=== PATIENT | male | born 1935 | race African-American/Black ===

== ENCOUNTER 2020-10-16 18:56 | Emergency (ER) | payer MEDICARE ==
[~2020-10-16] VITALS: Ht 182.9 cm; Wt 103.4 kg
[2020-10-16 19:00] VITALS: BP 131/74
[2020-10-16] MEDS ORDERED: IV NS 0.9% 500 ML BAG IV ONE (19:30)
[2020-10-16] MEDS ORDERED: ACETAMINOPHEN 650 MG/20.3 ML UDC PO ONE (19:30)
--- NOTE | 2020-10-16 19:36 | NUR ---
CORAZON (DAUGHTER) CONTACT INFORMATION: [phone] VIKTORIYA (SON) CONTACT INFORMATION: [phone]
[2020-10-16] MEDS ORDERED: ACETAMINOPHEN 325 MG TABLET ONE (19:40)
--- NOTE | 2020-10-16 19:43 | NUR ---
XRAY AT BEDSIDE.
[2020-10-16 19:48] LABS: BASOPHILS # (AUTO) 0.1 /CMM (0.0-0.2); BASOPHILS % (AUTO) 0.6 % (0.0-2.0); EOSINOPHILS % (AUTO) 0.4 % (0.0-6.0); HEMATOCRIT 39 % (39-51); HEMOGLOBIN 12.6 g/dL (13.5-17.5); LYMPHOCYTES % (AUTO) 10.7 % (20.0-44.0); MEAN CORPUSCULAR HGB CONC 33 g/dl (31.0-36.0); MEAN CORPUSCULAR VOLUME 89 fL (80-96); MONOCYTES # (AUTO) 0.6 /CMM (0.1-1.30); MONOCYTES % (AUTO) 6.1 % (2.0-12.0); NEUTROPHILS % (AUTO) 82.2 % (43.0-81.0); PLATELET COUNT (AUTO) 259 /CMM (150-450); RED BLOOD CELL COUNT(AUTO) 4.32 MIL/uL (4.5-6.0); WHITE BLOOD COUNT (AUTO) 9.8 K/uL (4.3-11.0)
[2020-10-16 20:11] LABS: ALANINE AMINOTRANSFERASE 30 U/L (12-78); ALBUMIN 3.1 g/dL (3.4-5.0); ALKALINE PHOSPHATASE 112 U/L (46-116); ASPARTATE AMINOTRANSFERASE 27 U/L (15-37); BILIRUBIN,DIRECT 0.1 mg/dL (0.0-0.2); BILIRUBIN,TOTAL 0.4 mg/dL (0.2-1.0); CARBON DIOXIDE 23 mmol/L (21-32); CHLORIDE 108 mmol/L (98-107); CREATININE 1.3 mg/dL (0.6-1.3); GLUCOSE 130 mg/dL (74-106); LIPASE 347 U/L (73-393); POTASSIUM 4.1 mmol/L (3.5-5.1); SODIUM SERUM 143 mmol/L (136-145); TOTAL PROTEIN, SERUM 6.8 g/dL (6.4-8.2); UREA NITROGEN, BLOOD 25 mg/dL (7-18)
--- NOTE | 2020-10-16 20:17 | NUR ---
REPORT GIVEN TO TRANSPORT TEAM FOR SUMMER. AND TRANSFERRING RESPONSIBILIITIES
--- NOTE | 2020-10-16 20:31 | NUR ---
[facility] ETA 45-60 MINUTES
--- NOTE | 2020-10-16 20:36 | NUR ---
CALLED FACILITY, REPORT GIVEN TO TED GOETZ AT [facility]
--- NOTE | 2020-10-16 20:58 | NUR ---
Patient discharged to home in stable condition. Written and verbal after care instructions given. Patient verbalizes understanding of instruction.
--- NOTE | 2020-10-16 20:58 | NUR ---
IV removed. Catheter intact and site benign. Pressure and 4x4 applied to site. No bleeding noted.
[2020-10-17] MEDS ORDERED: ATOR20TA PO (14:06)
[2020-10-17] MEDS ORDERED: LOSA25TA27 PO (14:06)
[2020-10-17] MEDS ORDERED: FLUO20CA36 PO (14:06)
[2020-10-17] MEDS ORDERED: LORA-259 PO (14:06)
[2020-10-17] MEDS ORDERED: FINA5TAB11 PO (14:06)
[2020-10-17] MEDS ORDERED: SUCR1TAB PO (14:06)
[2020-10-17] MEDS ORDERED: SERT25TA PO (14:06)
== END 2020-10-16 21:59 ==
LOC: ER 19:00
DX: S76.012A Strain of muscle, fascia and tendon of left hip, initial encounter (principal); S76.011A Strain of muscle, fascia and tendon of right hip, initial encounter; S30.1XXA Contusion of abdominal wall, initial encounter; E86.0 Dehydration; F03.90 Unspecified dementia, unspecified severity, without behavioral disturbance, psychotic disturbance, mood disturbance, and anxiety; F32.9 Major depressive disorder, single episode, unspecified; I10 Essential (primary) hypertension; W18.39XA Other fall on same level, initial encounter; Y93.89 Activity, other specified; Y92.89 Other specified places as the place of occurrence of the external cause; Y99.8 Other external cause status
CPT/HCPCS: 36415; 71045-TC; 72170-TC; 80048-TC; 80076-TC; 83690-TC; 84484-TC; 85025-TC

== ENCOUNTER 2020-10-17 13:04 | Inpatient (IN) | payer MEDICARE, BC ==
[~2020-10-17] VITALS: Ht 188 cm; Wt 101.7 kg
--- NOTE | 2020-10-17 13:10 | NUR ---
[id number] M SHELTER C/O L RIB AREA PAIN, PT FOUND IN THE FLOOR BY THE BEDSIDE PER EMS, STAFF STATES PT WAS VERBALIZING HE WANTS TO . PT DENIES STAFF SCIENTIST. PATIENT DENIES SI/HI AT THIS TIME. IN ROOM AIR AND DENIES SOB. RESPIRATION REGULAR AND UNLABORED. ATTACHED ON A MONITOR. WARM BLANKET PROVIDED FOR COMFORT. WILL CONTINUE TO MONITOR THE PATIENT.
--- NOTE | 2020-10-17 13:34 | NUR ---
BLOOD SPECIMEN COLLECTED AND SENT TO THE LAB
[2020-10-17 13:40] LABS: BASOPHILS % (AUTO) 0.3 % (0.0-2.0); EOSINOPHILS % (AUTO) 0.4 % (0.0-6.0); HEMATOCRIT 38 % (39-51); HEMOGLOBIN 12.4 g/dL (13.5-17.5); LYMPHOCYTES # (AUTO) 0.8 /CMM (0.8-4.8); LYMPHOCYTES % (AUTO) 10.1 % (20.0-44.0); MEAN CORPUSCULAR HGB CONC 33 g/dl (31.0-36.0); MEAN CORPUSCULAR VOLUME 89 fL (80-96); MONOCYTES # (AUTO) 0.4 /CMM (0.1-1.30); MONOCYTES % (AUTO) 5.4 % (2.0-12.0); NEUTROPHILS # (AUTO) 6.9 /CMM (1.8-8.9); NEUTROPHILS % (AUTO) 83.8 % (43.0-81.0); PLATELET COUNT (AUTO) 257 /CMM (150-450); RED BLOOD CELL COUNT(AUTO) 4.29 MIL/uL (4.5-6.0); WHITE BLOOD COUNT (AUTO) 8.3 K/uL (4.3-11.0)
[2020-10-17 13:54] LABS: ALANINE AMINOTRANSFERASE 29 U/L (12-78); ALBUMIN 3.2 g/dL (3.4-5.0); ALCOHOL, BLOOD < 3 mg/dL (0-0); ALKALINE PHOSPHATASE 112 U/L (46-116); ASPARTATE AMINOTRANSFERASE 26 U/L (15-37); BILIRUBIN,DIRECT 0.1 mg/dL (0.0-0.2); BILIRUBIN,TOTAL 0.5 mg/dL (0.2-1.0); CALCIUM, SERUM 8.9 mg/dL (8.5-10.1); CARBON DIOXIDE 26 mmol/L (21-32); CHLORIDE 106 mmol/L (98-107); CREATININE 1.1 mg/dL (0.6-1.3); GLUCOSE 131 mg/dL (74-106); SODIUM SERUM 144 mmol/L (136-145); TOTAL PROTEIN, SERUM 6.8 g/dL (6.4-8.2); UREA NITROGEN, BLOOD 19 mg/dL (7-18)
--- NOTE | 2020-10-17 13:56 | NUR ---
urine collected and sent to the lab
[2020-10-17 14:05] LABS: ACETAMINOPHEN < 2 ug/ml (10-30)
[2020-10-17] MEDS ORDERED: ATOR20TA PO (14:06)
[2020-10-17] MEDS ORDERED: LORA-259 PO (14:06)
[2020-10-17] MEDS ORDERED: FLUO20CA36 PO (14:06)
[2020-10-17] MEDS ORDERED: SERT25TA PO (14:06)
[2020-10-17] MEDS ORDERED: SUCR1TAB PO (14:06)
[2020-10-17] MEDS ORDERED: LOSA25TA27 PO (14:06)
[2020-10-17] MEDS ORDERED: FINA5TAB11 PO (14:06)
[2020-10-17 14:17] LABS: BILIRUBIN,URINE Negative (NEGATIVE); COLOR,URINE YELLOW (YELLOW); LEUKOCYTE ESTERASE ,URINE Negative (NEGATIVE); NITRITE, URINE Negative (NEGATIVE); PROTEIN,URINE Trace mg/dl (NEGATIVE); UGLUCOSE Negative (NEGATIVE); UROBILINOGEN,URINE 0.2 EU/dL (0.2)
[2020-10-17 14:22] LABS: BACTERIA,URINE Rare /HPF (None Seen); RBC,URINE NONE SEEN /HPF (0-2); SQUAMOUS EPITHELIAL CELL,UR Few /HPF (None Seen); WBC,URINE NONE SEEN /HPF (0-3)
--- NOTE | 2020-10-17 14:36 | NUR ---
COVID SWAB DONE AND SENT TO THE LAB
--- NOTE | 2020-10-17 15:08 | NUR ---
LAB CALLED PT COVID RESULT NEGATIVE (-).
--- NOTE | 2020-10-17 15:19 | NUR ---
[facility] CALLED [phone]
--- NOTE | 2020-10-17 16:08 | NUR ---
THE SITTER NOTED THAT THE PATIENT IS GETTING OUT OF BED AND ATTEMPTED TO PREVENT PATIENT FALL, HOWEVER, THE SITTER COULD NOT HOLD THE PATIENT AND THE PATIENT ROLLED OUT OF BED TO THE FLOOR. SITTER CALLED ER STAFF FOR HELP. THE PATIENT FOUND ON THE FLOOR WITH FOREHEAD LACERATION AND DROPS OF BLOOD IN HIS FOREHEAD AND THE FLOOR. PATIENT IS ASSESSED BY DR ARCINIEGA. TRANSFERED BACK TO BED BY [facility] NURSES.
--- NOTE | 2020-10-17 16:10 | NUR ---
FALL INCIDENT DONE
--- NOTE | 2020-10-17 16:11 | NUR ---
SON RAMESH SADLER IS MADE AWARE OF THE FALL INCIDENT.
--- NOTE | 2020-10-17 17:43 | NUR ---
[facility] CALLED OUTGOING INSPECTOR PAGED.
--- NOTE | 2020-10-17 17:51 | NUR ---
PATIENT IN BED. NO CHANGE IN LOC NOTED. RESPIRATION REGULAR AND UNLABORED. WILL CONTINUE TO MONITOR THE PATIENT.
[2020-10-17] MEDS ORDERED: MAGNESIUM HYDROXIDE 30 ML UDC PO PRN (18:30)
[2020-10-17] MEDS ORDERED: Z GUARD REMEDY 2 OZ OINT TP PRN (18:30)
[2020-10-17] MEDS ORDERED: MAG HYDROX/AL HYDROX/SIMETH 30 ML UDC PO PRN (18:30)
[2020-10-17] MEDS ORDERED: ACETAMINOPHEN 325 MG TABLET PO PRN (18:30)
[2020-10-17] MEDS ORDERED: ONDANSETRON HCL/PF 4 MG/2 ML VIAL IVP PRN (18:30)
[2020-10-17] MEDS ORDERED: HYDROCODONE/APAP 5/325MG TABLET PO PRN (18:30)
--- NOTE | 2020-10-17 19:20 | NUR ---
REPORT GIVEN TO BISHNU KURTZ FOR SUMMER
--- NOTE | 2020-10-17 22:01 | NUR ---
PT AWAKE IN BED, REMAINS ON MONITOR AND PULSE OX.
--- NOTE | 2020-10-18 00:16 | NUR ---
PT REMAINS IN BED, VSS.
[2020-10-18] MEDS ORDERED: OLANZAPINE 10 MG VIAL IM ONE ×2 (00:28→00:30)
--- NOTE | 2020-10-18 02:37 | NUR ---
PT PROVIDED WITH PILLOW, SITTER AT BEDSIDE.
[2020-10-18 05:42] LABS: CALCIUM, SERUM 8.4 mg/dL (8.5-10.1); PHOSPHORUS 3.7 mg/dL (2.5-4.9); POTASSIUM 3.8 mmol/L (3.5-5.1)
--- NOTE | 2020-10-18 06:45 | NUR ---
PT REPOSITIONED, PROVIDED WITH MORE BLANKETS.
[2020-10-18 06:54] LABS: BASOPHILS % (AUTO) 0.3 % (0.0-2.0); EOSINOPHILS % (AUTO) 0.5 % (0.0-6.0); HEMATOCRIT 37 % (39-51); HEMOGLOBIN 11.9 g/dL (13.5-17.5); LYMPHOCYTES # (AUTO) 1.2 /CMM (0.8-4.8); LYMPHOCYTES % (AUTO) 15.2 % (20.0-44.0); MEAN CORPUSCULAR HGB CONC 33 g/dl (31.0-36.0); MEAN CORPUSCULAR VOLUME 90 fL (80-96); MONOCYTES # (AUTO) 0.6 /CMM (0.1-1.30); MONOCYTES % (AUTO) 7.3 % (2.0-12.0); NEUTROPHILS # (AUTO) 6.2 /CMM (1.8-8.9); NEUTROPHILS % (AUTO) 76.7 % (43.0-81.0); PLATELET COUNT (AUTO) 212 /CMM (150-450); RED BLOOD CELL COUNT(AUTO) 4.06 MIL/uL (4.5-6.0); WHITE BLOOD COUNT (AUTO) 8.1 K/uL (4.3-11.0)
[2020-10-18] MEDS ORDERED: POTA20TA83 PO (08:20)
[2020-10-18] MEDS ORDERED: ACET-2605 PO (08:20)
[2020-10-18] MEDS ORDERED: LOSARTAN POTASSIUM 25 MG TABLET ONE (08:41)
[2020-10-18] MEDS ORDERED: SUCRALFATE 1 G TABLET ONE (08:42)
--- NOTE | 2020-10-18 08:45 | NUR ---
Patient eyesclose arousable alert to name sitter @ bedside repositioned patient to rt side non follows redness to buttocks keepatient clean and dry .
[2020-10-18] MEDS ORDERED: FLUOXETINE HCL 20 MG CAPSULE PO SCH (09:00)
[2020-10-18] MEDS: SERTRALINE HCL 25 MG TABLET PO SCH (09:00)
[2020-10-18] MEDS: LOSARTAN POTASSIUM 25 MG TABLET PO SCH (09:02)
[2020-10-18] MEDS: SUCRALFATE 1 G TABLET PO SCH ×2 (09:02→17:00)
[2020-10-18] MEDS: FINASTERIDE (5 MG) 5 MG TABLET PO SCH (09:02)
--- NOTE | 2020-10-18 09:10 | NUR ---
Called pharmacy regarding meds zoloft
--- NOTE | 2020-10-18 09:52 | NUR ---
Patient awake alert to name only .Patient morning meds given able to swallow pills non difficulties .
--- NOTE | 2020-10-18 10:03 | NUR ---
Jessy daughter [phone] .
[2020-10-18] MEDS ORDERED: MISCELLANEOUS MED 1 EA EA PO PRN (11:30)
[2020-10-18] MEDS ORDERED: LORAZEPAM 1 MG TABLET PO PRN (11:30)
--- NOTE | 2020-10-18 13:01 | NUR ---
Patient is fall precaution sitter @ bedside ,call light with in reach side rails up x 2 for safety .
--- NOTE | 2020-10-18 14:23 | NUR ---
Patient awake feeding asssit he ate 90 % of his lunch tray .
--- NOTE | 2020-10-18 16:29 | NUR ---
Patient awake non distress @ this time follows command ,fall precaution vitals taken and filed .
[2020-10-18 16:30] VITALS: BP 110/86
--- NOTE | 2020-10-18 16:36 | NUR ---
Called Emily ( daughter ) for update .
--- NOTE | 2020-10-18 17:12 | NUR ---
GOT BED 110 AFTER 173
--- NOTE | 2020-10-18 18:17 | NUR ---
Report given to Danni GOETZ ,aware if theres more question to Ed .Per Yovani Lemos he was trying to call report x 3 .
[2020-10-18 19:08] VITALS: BP 110/86
[2020-10-18 20:00] VITALS: BP 128/78
--- NOTE | 2020-10-18 20:01 | NUR ---
RN NOTE PATIENT AWAKE, ALERT AND ORIENTED TO NAME ONLY. PERIODS OF CONFUSION. ON O2 2LPM VIA NASAL CANNULA. NO SOB OR ANY RESPIRATORY DISTRESS. DENIES ANY PAIN. IV MIGUELINA #20 PATENT AND INTACT, FLUSHED WITH NS ASEPTICALLY. PATIENT IS FALL RISK, BED ALARM ON. SITTER @ BEDSIDE. BED LOCKED AND IN LOWEST POSITION. CALL LIGHT WITHIN REACH. WILL CONTINUE TO MONITOR.
[2020-10-18] MEDS: ATORVASTATIN 10 MG TABLET PO SCH (22:13)
[2020-10-19 04:00] VITALS: BP 128/82
--- NOTE | 2020-10-19 06:56 | NUR ---
RN NOTE PATIENT AWAKE, ALERT AND ORIENTED TO NAME ONLY. PERIODS OF CONFUSION. ON O2 2LPM VIA NASAL CANNULA, O2 SAT 94%. NO SOB NOTED. IV MIGUELINA #20 PATENT AND INTACT. PATIENT IS FALL RISK, BED ALARM ON. SITTER @ BEDSIDE. BED LOCKED AND IN LOWEST POSITION. CALL LIGHT WITHIN REACH. WILL ENDORSE TO AM SHIFT
--- NOTE | 2020-10-19 07:30 | NUR ---
RN OPENING NOTES Patient is alert and verbally responsive to verbal and physical stimuli. Patient is breathing even and unlabored. On 02 2liters via n/c with sat of 98%. No grimacing or moaning noted. 1:1 sitter observed at bedside. bed is in lowest and locked position. Call light with in reach.
[2020-10-19 08:00] VITALS: BP 139/87
[2020-10-19] MEDS: SUCRALFATE 1 G TABLET PO SCH ×2 (08:23→16:19)
[2020-10-19] MEDS: SERTRALINE HCL 25 MG TABLET PO SCH (08:23)
[2020-10-19] MEDS: POTASSIUM CHLORIDE 20 MEQ TAB.PRT.SR PO SCH (08:23)
[2020-10-19] MEDS: FINASTERIDE (5 MG) 5 MG TABLET PO SCH (08:23)
[2020-10-19] MEDS: LOSARTAN POTASSIUM 25 MG TABLET PO SCH (08:29)
--- NOTE | 2020-10-19 12:30 | NUR ---
UNIT TRANSFER NOTES Patient transferred to [facility] at apprx 12:15pm and report given to Ed GOETZ. Patient on 2 liters 02 via n/c with 02 sat of 96%. Patient continues on 1:1 sitter.
[2020-10-19 13:20] VITALS: BP 132/85
--- NOTE | 2020-10-19 13:40 | NUR ---
MS RN NOTES PT TRANSFERRED FROM [facility] TO 321-1 AT 1315 ACCOMPANIED BY RN KATELYNN AND PTS RITIKA MILLER. PATIENT IS AWAKE, ALERT AND ORIENTED X2 TO NAME AND PLACE. PT IS CONFUSED AND FORGETFUL. ORIENTED TO ROOM AND STAFF. VS TAKEN AND RECORDED. ON O2 2LPM VIA N/C,TOLERATING WELL WITH NO SOB NOTED. PHYSICAL ASSESSMENT DONE. PT WITH MULTIPLE BRUISES: L/R LOWER EYES WITH BRUISES, RIGHT SIDE ABD BRUISE, BLE BRUISES, SLIGHT REDNESS ON B/L HEELS, ELEVATED WITH PILLOWS, LEFT KNEE BRUISE, LEFT LOWER BACK AND RIGHT ARM BRUISES,B/L HIPS BRUISES AND RIGHT FOREHEAD WITH 13 SUTURES INTACT. IV ACCESS ON MIGUELINA #20 PATENT AND INTACT. PATIENT IS FALL RISK: BED ALARM ON. SITTER @ BEDSIDE. BED LOCKED AND IN LOWEST POSITION. CALL LIGHT WITHIN REACH. WILL CONTINUE TO MONITOR.
[2020-10-19 16:00] VITALS: BP 144/84
--- NOTE | 2020-10-19 18:59 | NUR ---
MS RN CLOSING NOTES PT TRANSFERRED FROM [facility] TO 321-1, WITH ONE ON ONE SITTER, PATIENT SLEEP IN BED BUT AROUSABLE TO STIMULI , ALERT AND ORIENTED X1, WITH EPISODE OF CONFUSION L. ORIENTED TO ROOM AND STAFF. VS TAKEN AND RECORDED. ON O2 2LPM VIA N/C,TOLERATING WELL WITH NO SOB NOTED. PHYSICAL ASSESSMENT DONE. IV ACCESS ON MIGUELINA #20 PATENT AND INTACT. PATIENT IS FALL RISK: BEDIN LOW POSITION, CALL LIGHTS WITHIN REACH, ILL ENDORSE TO INCOMING SHIFT.
[2020-10-19 20:00] VITALS: BP 131/77
[2020-10-19] MEDS: ATORVASTATIN 10 MG TABLET PO SCH (22:07)
--- NOTE | 2020-10-20 06:30 | NUR ---
ATTEMPTED TO CHANGE PATIENT AND CHECK FOR MOISTURE. PT REFUSING CARE, AGITATED, YELLING. "WHY CANT YOU LEAVE ME ALONE. " CANT YOU SEE I JUST WANT TO WATCH FOOTBALL. DON'T TOUCH ANYTHING AND GET OUT OF HERE. "
--- NOTE | 2020-10-20 06:46 | NUR ---
REFUSED AM LABS PER BUTTON MAKER.
[2020-10-20 08:00] VITALS: BP 140/85
[2020-10-20] MEDS: SERTRALINE HCL 25 MG TABLET PO SCH (09:02)
[2020-10-20] MEDS: SUCRALFATE 1 G TABLET PO SCH ×2 (09:02→16:27)
[2020-10-20] MEDS: POTASSIUM CHLORIDE 20 MEQ TAB.PRT.SR PO SCH (09:02)
[2020-10-20] MEDS: LOSARTAN POTASSIUM 25 MG TABLET PO SCH (09:02)
[2020-10-20] MEDS: FLUOXETINE HCL 20 MG CAPSULE PO SCH (09:02)
[2020-10-20] MEDS: FINASTERIDE (5 MG) 5 MG TABLET PO SCH (09:02)
[2020-10-20 16:00] VITALS: BP 123/86
[2020-10-20 16:36] LABS: BASOPHILS % (AUTO) 0.6 % (0.0-2.0); EOSINOPHILS % (AUTO) 1.3 % (0.0-6.0); HEMATOCRIT 35 % (39-51); HEMOGLOBIN 11.5 g/dL (13.5-17.5); LYMPHOCYTES % (AUTO) 12.1 % (20.0-44.0); MEAN CORPUSCULAR HGB CONC 33 g/dl (31.0-36.0); MEAN CORPUSCULAR VOLUME 89 fL (80-96); MONOCYTES # (AUTO) 0.7 /CMM (0.1-1.30); MONOCYTES % (AUTO) 8.3 % (2.0-12.0); NEUTROPHILS # (AUTO) 6.4 /CMM (1.8-8.9); NEUTROPHILS % (AUTO) 77.7 % (43.0-81.0); PLATELET COUNT (AUTO) 232 /CMM (150-450); RED BLOOD CELL COUNT(AUTO) 3.94 MIL/uL (4.5-6.0); WHITE BLOOD COUNT (AUTO) 8.2 K/uL (4.3-11.0)
[2020-10-20 16:59] LABS: CALCIUM, SERUM 8.4 mg/dL (8.5-10.1); CREATININE 0.9 mg/dL (0.6-1.3); POTASSIUM 3.7 mmol/L (3.5-5.1)
--- NOTE | 2020-10-20 19:30 | NUR ---
MS/TELE/RN RECEIVED PATIENT LYING IN BED AWAKE, ALERT, ORIENTED X 1, COMFORTABLE, NO C/O PAIN, NO DISTRESS NOTED, SITTER AT BEDSIDE FOR SAFETY. WILL MONITOR.
[2020-10-20 20:00] VITALS: BP 128/73
[2020-10-20] MEDS: ATORVASTATIN 10 MG TABLET PO SCH (23:11)
--- NOTE | 2020-10-21 06:32 | NUR ---
MS/TELE/RN PATIENT IS AWAKE, WATCHING TV, CALM AND COMFORTABLE, NO DISTRESS NOTED, SITTER AT BEDSIDE, ALL NEEDS ATTENDED AT THIS TIME, WILL CONTINUE TO MONITOR.
--- NOTE | 2020-10-21 07:30 | NUR ---
RN MS NOTES PT IN BED, AWAKE, ALERT TO SELF, CONFUSED, VERBALLY RESPONSIVE, DENIES PAIN, NOT IN DISTRESS, DENIES SI/HI AT THIS TIME, SITTER AT BEDSIDE, KEPT COMFORTABLE IN BED.
--- NOTE | 2020-10-21 08:14 | NUR ---
RN MS NOTES PT REFUSED VITAL SIGNS, REFUSED LAB DRAW, REFUSED BREAKFAST, SCREAMS AT STAFF WHEN ENCOURAGED TO EAT, DR. SANTAMARIA INFORMED, SITTER AT BEDSIDE, SAFETY PRECAUTIONS OBSERVED.
[2020-10-21] MEDS: SERTRALINE HCL 25 MG TABLET PO SCH (09:00)
[2020-10-21] MEDS: SUCRALFATE 1 G TABLET PO SCH ×2 (09:00→17:09)
[2020-10-21] MEDS: POTASSIUM CHLORIDE 20 MEQ TAB.PRT.SR PO SCH (09:00)
[2020-10-21] MEDS: FINASTERIDE (5 MG) 5 MG TABLET PO SCH (09:00)
[2020-10-21] MEDS: LOSARTAN POTASSIUM 25 MG TABLET PO SCH (09:01)
--- NOTE | 2020-10-21 10:13 | NUR ---
WOUND CARE CONSULT: PT PRESENTS WITH FOREHEAD LACERATION WHICH IS SUTURED AND MULTIPLE AREAS OF SKIN DISCOLORATION, PRESENT ON ADMISSION. PT IS UNCOOPERATIVE AT TIMES. PT IS INCONTINENT. RECOMMENDATIONS MADE FOR SKIN PROTECTION. DISCUSSED WITH NURSING STAFF. IN AGREEMENT WITH PLAN OF CARE. PT IS ON [facility] LOW AIRLOSS BED. Addendum: 10/21/20 at 1014 by SHARRI BHANDARI WNDNU Amended: Links added.
[2020-10-21 17:12] LABS: BASOPHILS % (AUTO) 0.3 % (0.0-2.0); EOSINOPHILS % (AUTO) 0.9 % (0.0-6.0); HEMATOCRIT 34 % (39-51); LYMPHOCYTES # (AUTO) 1.2 /CMM (0.8-4.8); LYMPHOCYTES % (AUTO) 13.5 % (20.0-44.0); MEAN CORPUSCULAR HGB CONC 33 g/dl (31.0-36.0); MEAN CORPUSCULAR VOLUME 88 fL (80-96); MONOCYTES # (AUTO) 0.7 /CMM (0.1-1.30); MONOCYTES % (AUTO) 8.1 % (2.0-12.0); NEUTROPHILS # (AUTO) 6.7 /CMM (1.8-8.9); NEUTROPHILS % (AUTO) 77.2 % (43.0-81.0); PLATELET COUNT (AUTO) 236 /CMM (150-450); RED BLOOD CELL COUNT(AUTO) 3.81 MIL/uL (4.5-6.0); WHITE BLOOD COUNT (AUTO) 8.7 K/uL (4.3-11.0)
[2020-10-21 17:24] LABS: CALCIUM, SERUM 8.6 mg/dL (8.5-10.1); CREATININE 0.7 mg/dL (0.6-1.3); PHOSPHORUS 3.3 mg/dL (2.5-4.9); POTASSIUM 3.8 mmol/L (3.5-5.1)
--- NOTE | 2020-10-21 18:20 | NUR ---
RN MS CLOSING NOTES Patient alert and oriented x1. Tolerated due meals and medications well. Had behavior episodes of combativeness due to confusion. PRN Ativan given with effect. VSS. Tried to get out of bed several times 1:1 sitter constantly having to reorient patient. Kept clean and dry. All needs met by staff.
[2020-10-21 20:00] VITALS: BP 132/79
--- NOTE | 2020-10-21 20:03 | NUR ---
MS/TELE/RN RECEIVED PATIENT LYING IN BED AWAKE, ALERT, ORIENTED X 1, COMFORTABLE AND CALM, NO DISTRESS NOTED, NO C/O PAIN, SITTER AT BEDSIDE FOR SAFETY, NEEDS ATTENDED, WILL MONITOR.
[2020-10-21] MEDS: ATORVASTATIN 10 MG TABLET PO SCH (22:00)
--- NOTE | 2020-10-21 22:00 | NUR ---
MS/TELE/RN DUE MED NOT GIVEN, PATIENT HAVING SOB AT THIS TIME.
[2020-10-21] MEDS ORDERED: IPRATROPIUM NEB FS 0.5 MG/2.5 ML AMPUL.NEB NEB PRN (22:30)
[2020-10-21] MEDS ORDERED: ALBUTEROL FS 2.5 MG/3 ML VIAL.NEB NEB PRN (22:30)
[2020-10-21] MEDS ORDERED: methylPREDNISolone SOD SUCC 125 MG/2ML VIAL IV ONE (23:30)
[2020-10-21] MEDS: ALBUTEROL FS 2.5 MG/3 ML VIAL.NEB NEB SCH (23:47)
[2020-10-21] MEDS: IPRATROPIUM NEB FS 0.5 MG/2.5 ML AMPUL.NEB NEB SCH (23:48)
[2020-10-22] MEDS ORDERED: FUROSEMIDE 20 MG/2 ML VIAL IV SCH
--- NOTE | 2020-10-22 00:53 | NUR ---
MS/TELE/RN PATIENT NOTED TO HAVE AUDIBLE WHEEZING AND MILD LABORED BREATHING, O2 SAT 90-92% ON 2L O2, TITRATED O2 TO 5L SIMPLE MASK WITH O2 SAT 94-95%, STILL WITH AUDIBLE WHEEZING AND LABORED BREATHING, SHRUTHI LAI, NOTIFIED WITH ORDER RECEIVED OF BREATHING TREATMENTS. NO CHANGE IN RESPIRATORY STATUS AFTER BREATHING TREATMENT WAS ADMINISTERED. NOTIFIED SHRUTHI BRUCE, AGAIN. MING CAME AND ASSESSED THE PATIENT. SHE ORDERED SOLUMEDROL 125 MG IVP X 1, CXR, AND BREATHING TREATMENTS. ORDERS CARRIED OUT. CURRENTLY, PATIENT APPEARS SLEEPING, BREATHING BETTER BUT STILL WHEEZING, O2 SAT 93-94% ON 5L SIMPLE MASK. SHRUTHI LAI, MADE AWARE OF THE RESULT OF CXR AND SHE ORDERED LASIX 40 MG IVP X 1, CARRIED OUOT. WILL CONTINUE TO MONITOR.
[2020-10-22] MEDS: ALBUTEROL FS 2.5 MG/3 ML VIAL.NEB NEB SCH ×7 (02:35→23:45)
[2020-10-22] MEDS: IPRATROPIUM NEB FS 0.5 MG/2.5 ML AMPUL.NEB NEB SCH ×7 (02:35→23:45)
--- NOTE | 2020-10-22 06:06 | NUR ---
MS/TELE/RN PATIENT IS SLEEPING, APPEAR COMFORTABLE, BREATHING EVEN AND UNLABORED, ON 5L SIMPLE MASK, SITTER AT BEDSIDE, ALL NEEDS ATTENDED AT THIS TIME, WILL CONTINUE TO MONITOR.
--- NOTE | 2020-10-22 07:30 | NUR ---
MS/RN OPENING NOTES RECEIVED PATIENT IN BED, ASLEEP, RESPONSIVE TO VERBAL AND TOUCH STIMULI. PRIVATE SITTER AJ PRESENT AT BEDSIDE. NO DISTRESSED NOTED. WILL CONTINUE TO MONITOR.
[2020-10-22] MEDS: POTASSIUM CHLORIDE 20 MEQ TAB.PRT.SR PO SCH (09:00)
[2020-10-22] MEDS: FINASTERIDE (5 MG) 5 MG TABLET PO SCH (09:00)
[2020-10-22] MEDS: FLUOXETINE HCL 20 MG CAPSULE PO SCH (09:00)
[2020-10-22] MEDS: SERTRALINE HCL 25 MG TABLET PO SCH (09:00)
[2020-10-22] MEDS: LOSARTAN POTASSIUM 25 MG TABLET PO SCH (09:00)
[2020-10-22] MEDS: SUCRALFATE 1 G TABLET PO SCH ×2 (09:00→17:00)
--- NOTE | 2020-10-22 09:32 | NUR ---
MED/SURG NOTES WHEN CHECKING PATIENT,HE WAS NON-RESPONSIVE AND WAS HAVING SEIZURE LASTED 1 MIN AND 20 SEC. VITAL SIGNS TAKEN BP 102/79, BS-151 MG/DL. PATIENT'S O2 SAT WAS AT 88-90%, INCREASED RATE OF O2 AT 10LPM, WITH A RESULT OF 95-97% VIA SIMPLE MASK. PATIENT IS HAVING ON AND OFF SEIZURES. RE-CHECKED PATIENT, PATIENT, BECOME RESPONSIVE TO NAME. DR. SANTAMARIA IS AWARE. NO NEW ORDERS AT THIS TIME. WILL CONTINUE TO MONITOR.
--- NOTE | 2020-10-22 09:48 | NUR ---
MS/RN NOTES DR. SANTAMARIA ORDERED ATIVAN 1MG IV X1. CARRIED OUT. WILL CONTINUE TO MONITOR.
[2020-10-22] MEDS ORDERED: LORAZEPAM INJ 2 MG/ML VIAL IV ONE (10:00)
[2020-10-22] MEDS: LEVETIRACETAM (500MG) 1,000 MG in IV NS 0.9% 100 ML IV SCH ×2 (10:10→22:26)
[2020-10-22 16:09] LABS: BASOPHILS % (AUTO) 0.3 % (0.0-2.0); HEMATOCRIT 35 % (39-51); HEMOGLOBIN 11.2 g/dL (13.5-17.5); LYMPHOCYTES # (AUTO) 0.6 /CMM (0.8-4.8); LYMPHOCYTES % (AUTO) 6.4 % (20.0-44.0); MEAN CORPUSCULAR HGB CONC 32 g/dl (31.0-36.0); MEAN CORPUSCULAR VOLUME 90 fL (80-96); MONOCYTES # (AUTO) 0.4 /CMM (0.1-1.30); NEUTROPHILS # (AUTO) 8.1 /CMM (1.8-8.9); NEUTROPHILS % (AUTO) 89.3 % (43.0-81.0); PLATELET COUNT (AUTO) 256 /CMM (150-450); RED BLOOD CELL COUNT(AUTO) 3.89 MIL/uL (4.5-6.0)
[2020-10-22 16:15] LABS: CALCIUM, SERUM 8.8 mg/dL (8.5-10.1); MAGNESIUM 2.2 mg/dL (1.8-2.4); POTASSIUM 3.6 mmol/L (3.5-5.1)
[2020-10-22 16:39] LABS: PHOSPHORUS 3.9 mg/dL (2.5-4.9)
[2020-10-22 18:17] VITALS: BP 132/79
--- NOTE | 2020-10-22 18:39 | NUR ---
MS/RN CLOSING NOTES PATIENT IN BED, ASLEEP, RESPONSIVE TO TOUCH STIMULI. PRIVATE SITTER PRESENT AT BEDSIDE. NO DISTRESSED NOTED AT THIS TIME. V/S WITHIN NORMAL. PATIENT ON OXYGEN AT 10LPM VIA MASK WITH O2 SAT AT 97%. HAD PERIODS OF MULTIPLE SEIZURES EARLIER THIS MORNING WITH NEW ORDERS. WILL ENDORSE TO VERIFIER OPERATOR FOR SUMMER.
--- NOTE | 2020-10-22 19:30 | NUR ---
MS OPENING NOTE PATIENT SLEEPING IN BED, RESPONDS TO VERBAL STIMULI AND TOUCH, ALERT AND ORIENTED X 1. NO ACUTE DISTRESS OR SHORTNESS OF BREATH NOTED. PATIENT ON 10 LPM OF OXYGEN VIA MASK WITH SPO2 OF 98%. PATIENT HAS FOREHEAD LACERATION WITH STITCHES, NO BLEEDING NOTED. NO REPORTS OF PAIN AT THIS TIME. SITTER PRESENT AT BEDSIDE. SAFETY MEASURES AND SEIZURE PRECAUTIONS IN PLACE, BED LOCKED IN LOWEST POSITION, CALL LIGHT WITHIN REACH, AND BED ALARM ON. WILL CONTINUE TO MONITOR
[2020-10-22] MEDS: ATORVASTATIN 10 MG TABLET PO SCH (22:00)
--- NOTE | 2020-10-22 22:49 | NUR ---
MS RN NOTE PATIENT DOZING IN AND OUT OF SLEEP, UNABLE TO TAKE LIPITOR 20 MG DUE TO ASPIRATION RISK. WILL CONTINUE TO MONITOR
[2020-10-23] MEDS: ALBUTEROL FS 2.5 MG/3 ML VIAL.NEB NEB SCH ×3 (03:31→11:51)
[2020-10-23] MEDS: IPRATROPIUM NEB FS 0.5 MG/2.5 ML AMPUL.NEB NEB SCH ×3 (03:31→11:51)
--- NOTE | 2020-10-23 07:00 | NUR ---
MS CLOSING NOTE PATIENT SLEEPING IN BED, RESPONDS TO VERBAL STIMULI AND TOUCH, ALERT AND ORIENTED X 1. NO ACUTE DISTRESS OR SHORTNESS OF BREATH NOTED. PATIENT ON 8 LPM OF OXYGEN VIA MASK WITH SPO2 OF 97%. PATIENT HAS FOREHEAD LACERATION WITH STITCHES, NO BLEEDING NOTED. NO REPORTS OF PAIN AT THIS TIME. NO SEIZURES THROUGHOUT SHIFT. SITTER PRESENT AT BEDSIDE. SAFETY MEASURES AND SEIZURE PRECAUTIONS IN PLACE, BED LOCKED IN LOWEST POSITION, CALL LIGHT WITHIN REACH, AND BED ALARM ON.WILL ENDORSE TO DAY SHIFT NURSE FOR CONTINUITY OF CARE
--- NOTE | 2020-10-23 07:35 | NUR ---
RN OPENING NOTE PATIENT AWAKE IN BED, RESPONDS TO VERBAL STIMULI AND TOUCH, ALERT AND ORIENTED X 1. NO ACUTE DISTRESS OR SHORTNESS OF BREATH NOTED. PATIENT ON 8 LPM OF OXYGEN VIA MASK WITH SPO2 OF 98%. PATIENT HAS RFA # 18 PATENT AND INTACT. PATIENT HAS FOREHEAD LACERATION WITH STITCHES, NO BLEEDING NOTED. NO REPORTS OF PAIN AT THIS TIME. SITTER PRESENT AT BEDSIDE. SAFETY MEASURES AND SEIZURE PRECAUTIONS IN PLACE, BED LOCKED IN LOWEST POSITION, CALL LIGHT WITHIN REACH, AND BED ALARM ON. WILL CONTINUE TO MONITOR
--- NOTE | 2020-10-23 09:00 | NUR ---
RN NOTES PATIENT WAS SEEN AND EVALUATED BY JAMAL SPEECH THERAPIST, FOR SWALLOW EVAL; NO SWALLOWING ISSUES NOTED AT THIS TIME PER ST. WILL CONTINUE TO MONITOR.
[2020-10-23] MEDS: FINASTERIDE (5 MG) 5 MG TABLET PO SCH (09:03)
[2020-10-23 09:04] VITALS: BP 126/70
[2020-10-23] MEDS: SUCRALFATE 1 G TABLET PO SCH (09:04)
[2020-10-23] MEDS: SERTRALINE HCL 25 MG TABLET PO SCH (09:04)
[2020-10-23] MEDS: POTASSIUM CHLORIDE 20 MEQ TAB.PRT.SR PO SCH (09:04)
[2020-10-23] MEDS: LEVETIRACETAM (500MG) 1,000 MG in IV NS 0.9% 100 ML IV SCH (09:04)
[2020-10-23] MEDS: LOSARTAN POTASSIUM 25 MG TABLET PO SCH (09:04)
[2020-10-23] MEDS ORDERED: LEVE1000 PO (10:48)
--- NOTE | 2020-10-23 13:02 | NUR ---
RN NOTES GAVE REPORT TO TABATHA AT [facility] FOR PATIENT. INFORMED HER THAT PICKUP TIME WAS 1400.
--- NOTE | 2020-10-23 14:48 | NUR ---
DISHWASHING MACHINE OPERATOR NOTES RECEIVED ORDER FOR DISCHARGE. PATIENT IS A/O X 1. PATIENT IS BREATHING EVENLY AND UNLABORED ON 2 LPM VIA NASAL CANNULA. PATIENT HAS LACERATION OF RIGHT SIDE OF THE FOREHEAD WITH STITCHES AND BRUISING THROUGHOUT THE BODY THAT WAS NOTED UPON ADMISSION. PHOTOS WERE TAKEN. IV AND ID BAND WAS REMOVED. PATIENT WAS PICKED UP VIA AMBULANCE AND 2 TOE POUNDER WERE PRESENT. ALL BELONGINGS WERE TAKEN WITH PATIENT. PATIENT LEFT TO [facility]. PATIENT LEFT IN STABLE CONDITION.
== END 2020-10-23 14:45 | DRG 100 ==
LOC: ER 13:04 → TRANSITION 10-18 11:05 → GPSOV1 10-18 17:26 → MEDSG1 10-18 18:03 → MED 10-19 12:19
PROVIDERS: ADMIT Internal Medicine; ATTEND Internal Medicine
PROC: 0HQ1XZZ Repair Face Skin, External Approach (ICD-10-PCS; principal; 2020-10-18)
DX: R56.9 Unspecified convulsions (principal); E43 Unspecified severe protein-calorie malnutrition; N17.0 Acute kidney failure with tubular necrosis; F23 Brief psychotic disorder; F29 Unspecified psychosis not due to a substance or known physiological condition; K21.9 Gastro-esophageal reflux disease without esophagitis; S01.81XA Laceration without foreign body of other part of head, initial encounter; R29.6 Repeated falls; Z68.28 Body mass index [BMI] 28.0-28.9, adult; F03.90 Unspecified dementia, unspecified severity, without behavioral disturbance, psychotic disturbance, mood disturbance, and anxiety; E78.5 Hyperlipidemia, unspecified; F32.9 Major depressive disorder, single episode, unspecified; S70.01XA Contusion of right hip, initial encounter; F41.9 Anxiety disorder, unspecified; I10 Essential (primary) hypertension; Z73.6 Limitation of activities due to disability; N40.0 Benign prostatic hyperplasia without lower urinary tract symptoms; M62.81 Muscle weakness (generalized); E88.09 Other disorders of plasma-protein metabolism, not elsewhere classified; W19.XXXA Unspecified fall, initial encounter; Y93.9 Activity, unspecified; Y92.238 Other place in hospital as the place of occurrence of the external cause; Z20.822 Contact with and (suspected) exposure to COVID-19
CPT/HCPCS: 36415; 70450-TC; 71045-TC; 72125-TC; 72170-TC; 80048-TC; 80076-TC; 81001; 82962-TC; 83690-TC; 83735-TC; 84100-TC; 84484-TC; 85025-TC; 87081-TC; 92526; 92611-TC; 94799-TC; A6403; C9803; G0378; G0480; J1940; J1953; J2060; J2930; J3490; J7030; J7050; U0003